=== PATIENT | female | born 1980 | race Caucasian/White ===

== ENCOUNTER 2016-10-30 10:30 | Outpatient (CLI) | payer BC ==
[2016-10-31 02:18] LABS: CALCIUM 9.2 mg/dL (8.6-10.3)
[2016-10-31 02:18] LABS: CREATININE,RANDOM URINE 101 mg/dL
[2016-10-31 02:19] LABS: ALB/GLOB RATIO 0.9 (>1.0); ALBUMIN 3.2 gm/dL (3.5-5.7); HEMATOCRIT 31.3 % (37.0-47.0); HEMOGLOBIN 10.4 gm/l (12.0-16.0)
[2016-10-31 02:20] LABS: ABSOLUTE NEUTROPHIL COUNT 6.1 K/mm3 (1.8-7.7); BASO % 0.5 % (0.2-1.0); EOS % 0.3 % (0.9-2.9); IMM NEUT # 0.1 K/mm3 (0-0.2); IMM NEUT% 0.7 % (0-1); LYMPH # 1.8 (1.0-4.8); LYMPH % 20.5 % (15-45); MEAN CELL VOLUME 90.7 fl (81.0-99.0); MEAN CORPUSCULAR HEMOGLOBIN 30.1 pg (27.0-31.0); MEAN CORPUSCULAR HGB CONC 33.2 g/dl (33.0-37.0); MEAN PLATELET VOLUME 11.2 fl (7.4-10.4); MONO # 0.7 (0.0-0.8); MONO % 8.3 % (4-12); NEUT % 69.7 % (43-75); PLATELET COUNT 151 K/mm3 (130-400); RED CELL DISTRIBUTION WIDTH 11.9 % (11.5-14.5)
== END 2016-10-30 13:20 | disposition home or self-care (01) ==
LOC: FBCOUT 10:30 → FBC 10:30 → FBCOUT 13:20
PROVIDERS: ATTEND Advanced Practice Midwife
DX: O26.893 Other specified pregnancy related conditions, third trimester (principal); Z3A.00 Weeks of gestation of pregnancy not specified
CPT/HCPCS: 85025; 80053; 84156; 59025; G0463

== ENCOUNTER 2016-11-08 06:59 | Outpatient (CLI) | payer BC ==
[2016-11-08 07:30] VITALS: BMI 24.3
[2016-11-08 07:40] LABS: ABSOLUTE NEUTROPHIL COUNT 5.3 K/mm3 (1.8-7.7); BASO % 0.2 % (0.2-1.0); EOS # 0.1 (0.0-0.5); EOS % 0.7 % (0.9-2.9); HEMATOCRIT 30.4 % (37.0-47.0); HEMOGLOBIN 9.8 gm/l (12.0-16.0); IMM NEUT # 0.1 K/mm3 (0-0.2); IMM NEUT% 0.7 % (0-1); LYMPH # 2.4 (1.0-4.8); LYMPH % 27.9 % (15-45); MEAN CELL VOLUME 91.6 fl (81.0-99.0); MEAN CORPUSCULAR HEMOGLOBIN 29.5 pg (27.0-31.0); MEAN CORPUSCULAR HGB CONC 32.2 g/dl (33.0-37.0); MEAN PLATELET VOLUME 11.3 fl (7.4-10.4); MONO # 0.7 (0.0-0.8); MONO % 8.3 % (4-12); NEUT % 62.2 % (43-75); PLATELET COUNT 150 K/mm3 (130-400); RED CELL DISTRIBUTION WIDTH 12.1 % (11.5-14.5)
[2016-11-08 07:59] LABS: ALBUMIN 2.8 gm/dL (3.5-5.7); BILIRUBIN,DIRECT 0.1 mg/dL (0.0-0.2); BILIRUBIN,INDIRECT 0.3 mg/dL (0.2-1.0)
[2016-11-08 07:59] LABS: SPECIFIC GRAVITY 1.025 (1.001-1.030); URINE BILIRUBIN NEGATIVE (NEGATIVE); URINE BLOOD NEGATIVE (NEGATIVE); URINE GLUCOSE (UA) NEGATIVE (NEGATIVE); URINE LEUKOCYTE ESTERASE NEGATIVE (NEGATIVE); URINE NITRITE NEGATIVE (NEGATIVE); URINE PROTEIN NEGATIVE (NEGATIVE); URINE UROBILINOGEN NORMAL (0-1 mg/dl)
[2016-11-08 08:00] LABS: URINE APPEARANCE CLEAR; URINE COLOR YELLOW
[2016-11-08 08:07] LABS: CREATININE,RANDOM URINE 144 mg/dL
[2016-11-10 23:00] LABS: CHENODEOXYCHOLIC ACID 2.6 umol/L (0.0-3.4); CHOLIC ACID 3.2 umol/L (0.0-1.9); DEOXYCHOLIC ACID 0.6 umol/L (0.0-2.5); TOTAL BILE ACIDS 6.7 umol/L (0.0-7.0); URSODEOXYCHOLIC ACID 0.3 umol/L (0.0-1.0)
== END 2016-11-08 08:30 | disposition home or self-care (01) ==
LOC: SUATTDRO → FBCOUT 06:59 → FBC 06:59 → SUATTDRO 06:59 → FBCOUT 08:30
PROVIDERS: ATTEND Advanced Practice Midwife
DX: O26.893 Other specified pregnancy related conditions, third trimester (principal); Z3A.36 36 weeks gestation of pregnancy
CPT/HCPCS: 85025; 80076; 81003; 84156; 83789; 36415; 59025; G0463

== ENCOUNTER 2016-11-14 09:45 | Outpatient (CLI) | payer BC ==
[2016-11-14 11:29] VITALS: BMI 23.6
== END 2016-11-14 11:30 | disposition home or self-care (01) ==
LOC: FBCOUT 09:45 → FBC 09:47 → FBCOUT 11:30
PROVIDERS: ATTEND Registered Nurse
DX: O26.893 Other specified pregnancy related conditions, third trimester (principal); R51 Headache; Z3A.37 37 weeks gestation of pregnancy
CPT/HCPCS: 59025; G0463

== ENCOUNTER 2016-11-29 03:09 | Inpatient (IN) | payer BC ==
[2016-11-29 03:42] VITALS: BMI 23.8
[2016-11-29] MEDS ORDERED: OXYTOCIN IN NS 334 ML IV PRN (04:43)
[2016-11-29] MEDS ORDERED: IV START KIT ONE (04:53)
[2016-11-29] MEDS ORDERED: OXYTOCIN 10 UNITS/ML VIAL ONE (04:53)
[2016-11-29] MEDS ORDERED: PUMP TUBING ONE (04:54)
[2016-11-29] MEDS ORDERED: LIDOCAINE Viscous 2% 15 ML UDCUP ONE (04:54)
[2016-11-29] MEDS ORDERED: LIDOCAINE 1% (PRES FREE) 30 ML VIAL ONE (04:54)
[2016-11-29] MEDS ORDERED: MINERAL OIL 25 ML BOT ONE (04:54)
[2016-11-29 05:27] LABS: HEMATOCRIT 32.8 % (37.0-47.0); HEMOGLOBIN 10.9 gm/l (12.0-16.0); MEAN CELL VOLUME 87.9 fl (81.0-99.0); MEAN CORPUSCULAR HEMOGLOBIN 29.2 pg (27.0-31.0); MEAN CORPUSCULAR HGB CONC 33.2 g/dl (33.0-37.0); RED CELL DISTRIBUTION WIDTH 13.2 % (11.5-14.5)
--- NOTE | 2016-11-29 06:00 | PCMAN ---
OB Admission Note - History : 4 Term: 2 : 0 Abortions (S&E): 1 Livin EDC:: 12/01/16 (by 7wk u/s) Gestational Age (weeks): 39 Days (#/7): 5 Admit Cervical Dilation:: deferred, /-2 on 11/25 Admit Presentaton:: cephalic by leopolds Membrane Status: Ruptured Rupture (Date): 11/29/16 Rupture (Time): 02:00 Membranes Comment:: clear, ROM + positive Contractions: Yes Contraction Frequency:: q 10m, mild to moderate Heart Rate:: 135 (moderate/accls present, decels absent) Status:: Cat. I, appropriate for IA EFW:: 7lbs Summary of Course:: Madeline is a with IUP at 39w5d by early first trimester ultrasound. Onset to care at 8wk x 20 visits. Pre preg wt 134lbs, BMI 20.4, TWG 32lbs. Normal anatomy scan with anterior placenta. Medical hx includes HPV + with normal pap in 08/2015, no LEEP. OB hx includes x 2 (6#9 and 7#2) and diet controlled GDM with previous . She had a normal 1hr with this . This was complicated by; Mild hyperemesis - treated with STEPS IV hydration Anemia - 9.8/30.4 on 11/08, unable to take consistent PO iron d/t nausea Protienuria - Noted visual disturbance and occasional migraines, PIH labs nml with exception of elevated p/c ratio, and maintained normotensive with clinical BP evaluation. Reported severe range BPs at home were never replicated with clinical evaluation. Likely connection to anxiety. Puritis - With normal bile acids and liver function tests, despite persistent puritis and patient concern for cholestasis. surveillance done given maternal anxiety. BPP 03/16 with TAMELA 18.4 at 36w4d. Case reviewed with OB who was in agreement that diagnosis criteria was not met, IOL was not indicated, and reassurance of status with good testing. Otherwise uncomplicated . Arrived at [facility] and reported SROM for clear fluid at approx 0200. ROM+ positive confirmed SROM. Ctx q 10min. Desires low stimulus labor, undecided about epidural and would like this as an option. Supported by [facility], who would like to help catch. plan focused primarily on skin to skin x 1 hr at minimum, delayed cord clamping, desires to keep placenta, and minimal stimulus . - Labs Blood Type: O (+) positive Hct/Hgb:: 9.8/30.4 Rubella Status: Non-immune GBS Status: Negative - Review of Systems ROS neg, significant nausea since yesterday - Physical Exam General: Afebrile, Mild Distress (appropriate for labor, coping well with contractions) Psych/Mental Status: Mood/Affect Appropriate, Judgment/Insight Intact, Bonding Well Neurological: Grossly Intact, Alert, Oriented x 4, Normal Gait, Normal Speech HEENT: Mucous membr. moist/pink Lungs: Clear to Auscultation Bilaterally, Normal Air Movement Cardiovascular: Regular Rate and Rhythm Genitourinary: Normal Female Genitalia Rectal Exam: Deferred Extremities: Full ROM Skin: Normal Color, Warm, Dry, Intact - Problems (1) Spontaneous rupture of amniotic membranes Status: AcuteAssessment/Plan: A: with IUP at 39w5d SROM at 0200, GBS neg Latent Labor FHT: Cat. I, appropriate for IA Asymptomatic Anemia (hgb 9.8 on 11/08) Allergy to Tylenol P: Admit to [facility] Place IV and CBC d/t anemia and possible desire for Epidural (declines RPR re- test) Encourage active movement, hydrotherapy, low stimulus environment Anticipate
[2016-11-29] MEDS ORDERED: CALCIUM CARBONATE 500 MG TAB.CHEW PO PRN ×2 (10:13→18:58)
--- NOTE | 2016-11-29 11:42 | PDOC36 ---
Provider Note Subject: cervical exam Note: S: Madeline has been trying to sleep and is now going to go walk. O: IA: 140s/increases noted/decreases absent CTx: q 8-10min, mild to moderate VE: 4/70/-2 A: at 39w5d SROM x 6hrs, gbs neg, clear fluid Latent labor P: encouraged upright positioning and active movement. Madeline requests expectant management and minimal intervention/interaction. Will reassess at SROM x 12hrs or earlier if needed.
[2016-11-29] MEDS: LACTATED RINGERS 1,000 ML IV PRN ×2 (14:40→15:17)
[2016-11-29] MEDS ORDERED: EPIDURAL PUMP SET ONE (14:44)
[2016-11-29] MEDS ORDERED: FENTANYL/ROPIVACAINE EPIDURAL 250 ML EP ONE (14:44)
--- NOTE | 2016-11-29 15:00 | PDOC36 ---
Provider Note Subject: labor progress note - epidural Note: S: Madeline is working hard through contractions. She did three sisters, ball sitting, walking, and nipple stimulation in the shower. She is requesting an exam and an epidural. O: IA: 135/increases noted/decreases absent CTx: q 2-4min, moderate VE: 6/100/-2 A: at 39w5d SROM x 12.5hrs, gbs neg, clear fluid Active P: Epidural order placed. Will discuss augmentation if needed Anticipate
[2016-11-29] MEDS ORDERED: FENTANYL 100 MCG/2 ML VIAL ONE (15:10)
[2016-11-29] MEDS ORDERED: LIDOCAINE 2% (PRES FREE) 5 ML VIAL ONE (15:11)
[2016-11-29] MEDS ORDERED: EPIDURAL PROCEDURE TRAY ONE (15:11)
[2016-11-29] MEDS ORDERED: ONDANSETRON 4 MG/2ML 2 ML VIAL IV PRN (15:35)
[2016-11-29] MEDS ORDERED: FENTANYL/ROPIVACAINE EPIDURAL 250 ML EP SCH (15:35)
[2016-11-29] MEDS ORDERED: NALBUPHINE HCL 20 MG/ML AMP IV PRN (15:35)
[2016-11-29] MEDS ORDERED: METOCLOPRAMIDE HCL 5 MG/ML 2ML VIAL IV PRN (15:35)
[2016-11-29] MEDS ORDERED: EPHEDRINE SULFATE 50 MG/ML 1ML VIAL IV PRN (15:35)
[2016-11-29] MEDS ORDERED: NALOXONE HCL 0.4 MG/ML VIAL IV PRN (15:35)
[2016-11-29] MEDS ORDERED: SODIUM CHLORIDE 0.9% 500 ML IV PRN (15:35)
[2016-11-29] MEDS ORDERED: DIPHENHYDRAMINE HCL 50 MG/1 ML VIAL IV PRN (15:35)
[2016-11-29] MEDS ORDERED: LACTATED RINGERS 1,000 ML IV SCH (15:35)
[2016-11-29] MEDS ORDERED: LACTATED RINGERS 500 ML IV PRN (15:35)
[2016-11-29] MEDS ORDERED: LANOLIN 50 APPLIC/7G TUBE TP PRN (18:58)
[2016-11-29] MEDS ORDERED: BENZOCAINE/MENTHOL 60 APPLIC/BOT TP PRN (18:58)
[2016-11-29] MEDS ORDERED: HYDROCODONE/ACETAMINOPHEN 5/325MG TABLET PO PRN (18:58)
[2016-11-29] MEDS ORDERED: OXYTOCIN IN NS 167 ML IV PRN (18:58)
[2016-11-29] MEDS ORDERED: MAGNESIUM HYDROXIDE 30 ML UDCUP PO PRN (18:58)
[2016-11-29] MEDS ORDERED: ACETAMINOPHEN 325 MG TABLET PO PRN (18:58)
[2016-11-29] MEDS ORDERED: DOCUSATE SODIUM 100 MG CAPSULE PO PRN (18:58)
[2016-11-29] MEDS: IBUPROFEN 800 MG TABLET PO SCH (21:07)
--- NOTE | 2016-11-29 21:49 | PCMDEL ---
Delivery Note - Labor 1st stage (hr/min):: 2h13m 2nd stage (hr/min):: 1h19m 3rd stage (hr/min):: 0h11m Total (hr/min):: 3h43m Pushed (hr/min):: 1h0m - Delivery Delivery (Date): 11/29/16 Delivery (Time): 17:07 Gender: Female Weight: 9 lb 2 oz Length: 1 ft 9 in Presentation: Cephalic Position: OA Umbilical Cord: 3 Vessel Delayed Cord Clamping:: > 3 min 1 Minute Total: 9 5 Minute Total: 9 Placenta:: spontaneous, humberto, intact, evc EBL:: 100ml Perineum:: 1st deg perineal naturally approximated and hemostatic, not repaired Suture:: none Anesthesia/Meds:: none Length ROM:: 15h7m Comments:: Following PROM of clear fluid Angelina made minimal progress with expectant management. After 12 hours PROM and using spinning babies techniques she entered into active labor and requested epidural anesthesia. She made quick progress to complete and pushed effectively to achieve of vigorous male , FOB hong assisted with delivery. Easy delivery of shoulders. FHT Cat. I and Cat. II thoughout labor with noted decels during second stage to 90s and occasionally 60s with persistent good return baseline with moderate variability between contractions. Apgars 9/9. Madeline remained afebrile throughout labor and never met criteria for chorio. placed immediately on maternal abdomen for skin to skin bonding and drying. Delayed cord clamping until cessation of pulsing, cut by FOB. no AMTSL given. Spontaneous delivery of intact placenta, 3vc. fundus firm midline and u/-1. baby to breast. 1st deg perineal naturally approximated and hemostatic, not repaired. hemostasis achieved. EBL 100ml, mom and baby stable
[2016-11-30] MEDS: IBUPROFEN 800 MG TABLET PO SCH ×2 (03:06→08:36)
[2016-11-30 07:11] LABS: HEMATOCRIT 29.5 % (37.0-47.0); HEMOGLOBIN 9.6 gm/l (12.0-16.0)
[2016-11-30 08:06] VITALS: BP 112/64
[2016-11-30] MEDS ORDERED: DIPHTH,PERTUSS(ACELL),TET VAC 0.5 ML VIAL IM V ONE (08:48)
[2016-11-30] MEDS ORDERED: FERROUS GLUCONATE (38 Fe) 324 MG TABLET PO SCH (09:00)
--- NOTE | 2016-11-30 12:23 | PDOC39B ---
Hospital Course: ADMIT DATE: 11/29/16 DISCHARGE DATE: 11/30/2016 ADMISSION DIAGNOSES: Prelabor rupture of membranes at term PROCEDURES: HISTORY OF PRESENT ILLNESS: 36 year old G4 T2 L2 at 39 weeks 5 days presenting with Prelabor rupture of membranes at term. Labor began spontaneously <24hrs after rupture and progressed to of 9lb 2oz vigorous female on 11/29. HOSPITAL COURSE: The patient feels well. Afterpains are worse with this baby, but controlled with ibuprofen. Labs reflect anemia. Discussed increasing iron rich foods and taking Fe supplement. By day of discharge the patient is ambulating, eating, voiding, and passing flatus without difficulty. Pain is controlled and lochia is appropriate. She is with mild pain at latch. The pain resolves during the feed. She will schedule with [facility] of pain persists. - Physical Exam Vital Signs: Temp Pulse Resp BP Pulse Ox 98.4 F 79 16 112/64 11/30/16 07:41 11/30/16 07:41 11/30/16 07:41 11/30/16 07:41 General: Afebrile Psych/Mental Status: Mood/Affect Appropriate, Judgment/Insight Intact, Bonding Well Neurological: Grossly Intact, Alert, Oriented x 4 HEENT: Atraumatic Lungs: Clear to Auscultation Bilaterally, Normal Air Movement Cardiovascular: Regular Rate and Rhythm, Normal S1, Normal S2 Breast: Soft, Skin intact, Nipples Intact Fundus: Firm, Midline, At Umbilicus Abdomen: Normal Bowel Sounds Genitourinary: Normal Female Genitalia Lochia: Moderate Rectal Exam: Deferred Extremities: Full ROM Skin: Normal Color - Discharge Diagnosis (1) Delivery without complication during current hospitalization Status: AcuteAssessment/Plan: A: delivered at 39w5d Uncomplicated P: DC to home today Follow-up in clinic at 2 weeks Support from [facility] PRN Midwifery 'After the ' handout given to patient. - Discharge Plan Condition: Stable Disposition: Home Instruction Forms: Vaginal Discharge Instructions Prescriptions: FERROUS GLUCONATE (38 Fe) [IRON FERGON 325 MG TABLET (SHF)] 324 mg PO BID #60 tab Follow-Up: Sweetie-Fatimah Raman CNM [Certified Nurse Home Theater Expert] - As scheduled (WednesdayDecember 14 at 1pm at the [place] [facility])
[2016-11-30] MEDS ORDERED: LACTATED RINGERS 1,000 ML ONE (14:46)
== END 2016-11-30 13:44 | disposition home or self-care (01) | DRG 775 ==
LOC: FBCOUT 03:09 → FBC 03:12 → FBCOUT 04:38
PROVIDERS: ADMIT Advanced Practice Midwife; ATTEND Advanced Practice Midwife
PROC: 10E0XZZ Delivery of Products of Conception, External Approach (ICD-10-PCS; principal; 2016-11-29)
DX: O99.344 Other mental disorders complicating childbirth (principal); F41.9 Anxiety disorder, unspecified; Z3A.39 39 weeks gestation of pregnancy; Z37.0 Single live birth; O62.1 Secondary uterine inertia; O99.02 Anemia complicating childbirth; D64.9 Anemia, unspecified; O70.0 First degree perineal laceration during delivery; O09.43 Supervision of pregnancy with grand multiparity, third trimester